=== PATIENT | male | born 1955 | race Caucasian/White ===

== ENCOUNTER → 2023-06-22 | Outpatient (CLI) | payer MEDICARE ==
--- NOTE | 2023-06-22 16:09 | MR ---
MRI CERVICAL SPINE: CLINICAL HISTORY: Neck pain, right arm and fingers numbness cervicalgia and paresthesia of skin TECHNIQUE: Multiplanar, multisequence imaging of the cervical spine is performed without IV contrast. COMPARISON: None. FINDINGS: Sagittal images of the cervical spine show the craniocervical junction to appear within nor mal limits. The cervical and upper thoracic spinal cord is normal in course, caliber, and signal. Th ere is slight grade 1 retrolisthesis C3 on C4 with grade 1 anterolisthesis C4 on C5 and grade 1 retro listhesis C5 on C6 and slight grade 1 anterolisthesis C7 on T1. The vertebral body heights are bernice l. Mild to moderate disc space narrowing at C3-C4 and C5-C6 levels is seen. The bone marrow signal in tensity is within normal limits. Axial images at C2-C3 level shows uncovertebral facet degenerative change causing mild right-sided ne ural foraminal narrowing. Axial images at C3-C4 levels from broad-based posterior disc protrusion effacing anterior thecal sac with uncovertebral facet degenerative change causing moderate to severe left and mild to moderate rig ht-sided neural foraminal narrowing. Axial images at C4-C5 level appear within normal limits. Axial images at C5-C6 level shows broad-based left paracentral disc protrusion effacing the anterior thecal sac up to the ventral surface of the cervical spinal cord. There is severe bilateral neural f oraminal narrowing seen. Axial images at C6-C7 level show broad-based posterior disc protrusion mildly effaces the anterior th ecal sac and causing mild to moderate right greater than left bilateral neural foraminal narrowing. Axial images at C7-T1 level shows spondylolisthesis otherwise are unremarkable. IMPRESSION: Multilevel spondylolisthesis and degenerative change of the cervical spine as detailed ab ove with findings most prominent at the C5-C6 level noted.
== END | disposition home or self-care (01) ==
LOC: RADMRIMAIN 15:19
PROVIDERS: ATTEND Psychiatry & Neurology Neurology
DX: M47.812 Spondylosis without myelopathy or radiculopathy, cervical region (principal); M50.31 Other cervical disc degeneration, high cervical region; M50.123 Cervical disc disorder at C6-C7 level with radiculopathy; R20.2 Paresthesia of skin
CPT/HCPCS: 72141